=== PATIENT | female | born 1970 | race Caucasian/White ===

== ENCOUNTER 2016-09-08 14:28 | Emergency (ER) | payer BC, OTHER, SELFPAY ==
[~2016-09-08] VITALS: Ht 175.3 cm; Wt 106.8 kg
[2016-09-08] MEDS ORDERED: ONDANSETRON 2MG/ML, 2ML ONE (15:26)
[2016-09-08] MEDS ORDERED: KETOROLAC 30 MG/1 ML ONE (15:26)
[2016-09-08] MEDS ORDERED: MORPHINE SULFATE 4 MG/ML, 1ML ONE ×2 (15:26→16:29)
[2016-09-08] MEDS ORDERED: SODIUM CHLORIDE FLUSH 10ML SYR IVF ONE (15:30)
[2016-09-08] MEDS: MORPHINE SULFATE 4 MG/ML, 1ML IVPush PRN ×2 (15:30→16:45)
[2016-09-08] MEDS ORDERED: ONDANSETRON 2MG/ML, 2ML IVPush ONE (15:30)
[2016-09-08] MEDS ORDERED: SODIUM CHLORIDE 0.9% 1,000ML IV ONE (15:30)
[2016-09-08] MEDS ORDERED: KETOROLAC 30 MG/1 ML IVPush ONE (15:30)
[2016-09-08 15:39] LABS: ASPARTATE AMINO TRANSFERASE 17 U/L (15-37); BLOOD UREA NITROGEN 20 mg/dL (7-18)
[2016-09-08 16:05] LABS: PATH.CAST-FLAG NOT PRESENT; SPERM-FLAG NOT PRESENT; SRC-FLAG NOT PRESENT; XTAL-FLAG NOT PRESENT; YLC-FLAG NOT PRESENT
[2016-09-08] MEDS ORDERED: CEFTRIAXONE PMX 1GM/50ML 0 ML ONE (16:28)
[2016-09-08] MEDS ORDERED: CEFTRIAXONE PMX 2GM/50ML 50 ML ONE (16:29)
[2016-09-08] MEDS ORDERED: CEFTRIAXONE PMX 2GM/50ML 50 ML IVPB ONE (16:30)
[2016-09-08 16:49] VITALS: BP 145/83
== END 2016-09-08 17:00 | disposition home or self-care (01) ==
LOC: ED 16:54
DX: N10 Acute pyelonephritis (principal)
CPT/HCPCS: 36415; 74176; 80053; 81001; 85025; 87077; 87086; 96365; 96375; 96376; 99285; J0696; J1885; J2405; J7030; 87186

== ENCOUNTER → 2016-11-19 | Outpatient (CLI) | payer BC | END | disposition home or self-care (01) | LOC: CFH 15:30 | PROVIDERS: ATTEND Family Medicine | DX: Z12.31 Encounter for screening mammogram for malignant neoplasm of breast (principal) | CPT/HCPCS: G0202 ==